=== PATIENT | male | born 1970 | race African-American/Black ===

== ENCOUNTER 2021-02-02 08:40 | Emergency (ER) | payer SELFPAY ==
[2021-02-02 09:06] LABS: BASOPHILS % (AUTO) 1.1 % (0.0-5.0); CREATININE 1.1 mg/dL (0.5-1.5); EOSINOPHILS % (AUTO) 2.6 % (0.0-8.0); HEMATOCRIT 44.9 % (42-54); LYMPHOCYTES % (AUTO) 23.1 % (21.0-51.0); MEAN CORPUSCULAR HEMOGLOBIN 28.7 pg (27.0-33.0); MEAN CORPUSCULAR HGB CONC 32.3 g/dL (32.0-36.0); MEAN CORPUSCULAR VOLUME 88.7 fL (79-99); MONOCYTES % (AUTO) 7.4 % (3.0-13.0); NEUTROPHILS % (AUTO) 65.3 % (40.0-77.0); PLATELET COUNT (AUTO) 249 K/uL (130-400); POTASSIUM 4.8 mmol/L (3.5-5.1); RED BLOOD CELL COUNT(AUTO) 5.06 MIL/uL (4.50-6.20); RED CELL DISTRIBUTION WIDTH 11.8 % (11.0-15.5); WHITE BLOOD COUNT (AUTO) 6.2 K/uL (4.8-10.8)
[2021-02-02 09:11] LABS: ALBUMIN 4.4 g/dL (3.5-5.0); BILIRUBIN,TOTAL 0.4 mg/dL (0.2-1.0); TOTAL PROTEIN, SERUM 8.2 g/dL (6.0-8.3)
[2021-02-02 09:13] LABS: INR 1.05 (0.85-1.15); PROTHROMBIN TIME 11.4 SEC (9.6-11.6)
[2021-02-02 09:14] LABS: PARTIAL THROMBOPLASTIN TIME 23.6 SEC (26.3-35.5)
[2021-02-02] MEDS ORDERED: LEVETIRACETAM 500 MG/5 ML SD VIAL IV ONE (09:31)
[2021-02-02] MEDS ORDERED: 0.9%NACL 100ML 100 ML IV ONE (09:32)
[2021-02-02] MEDS ORDERED: DIPHENHYDRAMINE HCL 25 MG CAPSULE ONE (09:32)
== END 2021-02-02 12:57 ==
LOC: EDH 08:40 → EEVIPCON 08:40 → EDH 12:57
DX: G40.909 Epilepsy, unspecified, not intractable, without status epilepticus (principal); F44.5 Conversion disorder with seizures or convulsions; R56.9 Unspecified convulsions; Z72.0 Tobacco use
CPT/HCPCS: 36415; 70450; 71045; 80053; 80156; 84484; 85025; 85610; 85730; 93005; 96365; 96366; 99285; J1953; Q0163